=== PATIENT | male | born 1945 | race Caucasian/White ===

== ENCOUNTER 2021-10-23 15:59 | Outpatient (CLI) | payer MEDICARE, OTHER, SELFPAY ==
[2021-10-23 16:32] LABS: International Normalized Ratio 1.4; Prothrombin Time (Protime)PT. 16.3 SECONDS (11.7-14.9)
== END 2021-10-23 23:59 | disposition home or self-care (01) ==
PROVIDERS: Visit Provider Family Medicine
DX: I25.118 Atherosclerotic heart disease of native coronary artery with other forms of angina pectoris (principal)
CPT/HCPCS: 85610

== ENCOUNTER 2021-10-26 10:30 | Outpatient (CLI) | payer MEDICARE, OTHER, SELFPAY ==
[2021-10-26 10:56] LABS: Prothrombin Time (Protime)PT. 21.8 SECONDS (11.7-14.9)
== END 2021-10-26 23:59 | disposition home or self-care (01) ==
LOC: LABSPEC 10:34
PROVIDERS: Visit Provider Family Medicine
DX: Z79.01 Long term (current) use of anticoagulants (principal)
CPT/HCPCS: 85610